=== PATIENT | female | born 1950 | race African-American/Black ===

== ENCOUNTER 2017-11-08 06:11 | Emergency (ER) | payer OTHER, BC ==
[~2017-11-08] VITALS: Ht 157.5 cm; Wt 116.6 kg
[~2017-11-08 06:11] MED LIST: MACROBID 100 M100 M1 PO; POTASSIUM CHLO10 MEQ PO; ZOFRAN ODT8 MG PO
[2017-11-08] MEDS ORDERED: LOPRESSOR50 MG PO (06:25)
[2017-11-08] MEDS ORDERED: CARDIZEM CD120 MG PO (06:26)
[2017-11-08] MEDS ORDERED: NEURONTIN 300300 M1 PO (06:26)
[2017-11-08] MEDS ORDERED: POTASSIUM20 PO (06:27)
[2017-11-08] MEDS ORDERED: HYDROCHLOROTHIA25 M2 PO (06:27)
[2017-11-08] MEDS ORDERED: NAPROSYN500 MG PO (06:28)
[2017-11-08] MEDS ORDERED: VITAMIN D3400 UNIT PO (06:29)
[2017-11-08 06:45] LABS: ABSOLUTE NEUTROPHILS 5.2 thou/uL (1.4-8.2); BASOPHILS 0.5 % (0.0-2.0); EOSINOPHILS 1.5 % (0.0-3.0); HEMATOCRIT 36.3 % (37.0-47.0); HEMOGLOBIN 12.1 gm/dL (12.0-15.0); MCH 27.7 pg (26.0-34.0); MCHC 33.2 g/dL (28.0-37.0); MCV 83.4 fL (80.0-100.0); MONOCYTES 9.2 % (1.0-8.0); PLATELET COUNT 346 thou/uL (150-400); POLYS 64.8 % (36.0-66.0); RBC 4.36 mil/uL (4.20-5.00); RDW 15.5 % (10.5-14.5)
[2017-11-08 06:50] LABS: CREATININE 0.8 mg/dL (0.6-1.0); POTASSIUM 3.1 mmol/L (3.5-5.1)
[2017-11-08 06:56] LABS: ALBUMIN 3.7 g/dL (3.4-5.0); DIRECT BILIRUBIN 0.1 mg/dL (<0.1-0.3); TOTAL BILIRUBIN 0.4 mg/dL (<0.1-1.0)
[2017-11-08 08:52] VITALS: BP 153/87
== END 2017-11-08 08:53 | disposition home or self-care (01) ==
LOC: ER 06:11
PROVIDERS: Emergency Medicine
DX: S86.912A Strain of unspecified muscle(s) and tendon(s) at lower leg level, left leg, initial encounter (principal); X58.XXXA Exposure to other specified factors, initial encounter; Y93.89 Activity, other specified; Y92.89 Other specified places as the place of occurrence of the external cause; Y99.8 Other external cause status; M19.90 Unspecified osteoarthritis, unspecified site

== ENCOUNTER 2019-06-21 12:05 | Emergency (ER) | payer OTHER, BC ==
[~2019-06-21] VITALS: Ht 157.5 cm; Wt 90.7 kg
[~2019-06-21 12:05] MED LIST changes: +CARDIZEM CD120 MG PO; +HYDROCHLOROTHIA25 M2 PO; +LOPRESSOR50 MG PO; +NAPROSYN500 MG PO; +NEURONTIN 300300 M1 PO; +POTASSIUM20 PO; +VITAMIN D3400 UNIT PO
[2019-06-21] MEDS ORDERED: MOBIC7.5 MG PO (12:30)
[2019-06-21] MEDS ORDERED: TOPAMAX100 MG PO ×2 (12:31)
[2019-06-21 13:04] LABS: ABSOLUTE NEUTROPHILS 3.7 thou/uL (1.4-8.2); BASOPHILS 0.8 % (0.0-2.0); HEMATOCRIT 38.4 % (37.0-47.0); HEMOGLOBIN 12.4 gm/dL (12.0-15.0); LYMPHOCYTES 13.2 % (24.0-44.0); MCH 27.3 pg (26.0-34.0); MCHC 32.4 g/dL (28.0-37.0); MCV 84.3 fL (80.0-100.0); MONOCYTES 9.7 % (1.0-8.0); PLATELET COUNT 256 thou/uL (150-400); POLYS 76.3 % (36.0-66.0); RBC 4.56 mil/uL (4.20-5.00); RDW 14.2 % (10.5-14.5); WBC 4.8 thou/uL (4.0-11.0)
[2019-06-21 13:12] LABS: ANION GAP 8 mmol/L (7-16); BUN 13 mg/dL (7-18); CALCIUM 10.1 mg/dL (8.5-10.1); CHLORIDE 101 mmol/L (98-107); CO2 31 mmol/L (21-32); CREATININE 0.8 mg/dL (0.6-1.0); GLUCOSE 115 mg/dL (74-106); POTASSIUM 3.7 mmol/L (3.5-5.1); SODIUM 140 mmol/L (136-145)
[2019-06-21 13:22] LABS: ALBUMIN 3.6 g/dL (3.4-5.0); SGOT 27 U/L (15-37); SGPT 36 U/L (30-65); TOTAL BILIRUBIN 0.6 mg/dL (<0.1-1.0); TOTAL PROTEIN 7.8 g/dL (6.4-8.2); TROPONIN-I <0.06 ng/mL (<0.06)
[2019-06-21 14:58] LABS: URINE BILIRUBIN NEGATIVE (Negative); URINE BLOOD 3+ (Negative); URINE CLARITY CLEAR; URINE COLOR OTHER; URINE GLUCOSE-RANDOM* NEGATIVE (Negative); URINE KETONES NEGATIVE (Negative); URINE NITRITE-REFLEX NEGATIVE (Negative); URINE PROTEIN (DIPSTICK) NEGATIVE (Negative); URINE SPECIFIC GRAVITY <= 1.005 (1.005-1.035); URINE UROBILINOGEN 0.2 E.U./dl (0.2-1.0)
[2019-06-21 15:02] LABS: URINE LEUKOCYTES-REFLEX 1+ (Negative)
[2019-06-21 15:12] LABS: BACTERIA-REFLEX 1-9 Few /HPF (None Seen); CASTS None Seen /LPF (None Seen); CRYSTALS None Seen /LPF (None Seen); SQUAMOUS 0-3 Few /LPF (0-3); URINE RBC 3-10 Few /HPF (0-2); URINE WBC-REFLEX 0-5 Rare /HPF (0-5)
[2019-06-21] MEDS ORDERED: KEFLEX500 M2 PO (15:22)
[2019-06-21] MEDS ORDERED: DIFLUCAN150 MG PO (15:54)
[2019-06-21 16:03] VITALS: BP 152/77
--- NOTE | 2019-06-24 12:58 | EKG ---
[address] [place] [address] ELECTROCARDIOGRAM REPORT Name: ROSAURA GLASSANATOLY Buckley [id number] Admission: 06/21/19 Attend Phys: Discharge: 06/21/19 Date of : 46 Report #: [id number] THIS REPORT FOR: //name// [facility] ED Test Date: 2019-06-21 Test Time: 12:17:08 Pat Name: OMER GLASS Department: Room: Gender: F [facility] Cook: : 1950 Requested By: Elsa Valdez Order Number: [id number] MD: Kip Oviedo Measurements Intervals [place] Rate: 69 P: 53 VA: 175 QRS: -34 QRSD: 116 T: 28 QT: 405 QTc: 434 Interpretive Statements Sinus rhythm Nonspecific intraventricular conduction delay No previous ECG available for comparison Electronically Signed On 06-24-2019 12:57:30 [employer]CESSION STAND ATTENDANT by Kip Oviedo [email or web address] <ELECTRONICALLY SIGNED> By: Kip Oviedo MD 06/24/19 1257 1217 1217 Kip Oviedo MD /GERMAIN
== END 2019-06-21 15:38 | disposition home or self-care (01) ==
LOC: ER 12:05
PROVIDERS: Emergency Medicine; Nurse Practitioner Family
DX: J18.8 Other pneumonia, unspecified organism (principal); R30.0 Dysuria; R31.9 Hematuria, unspecified; R53.1 Weakness; R19.7 Diarrhea, unspecified; I10 Essential (primary) hypertension; E78.00 Pure hypercholesterolemia, unspecified; K21.9 Gastro-esophageal reflux disease without esophagitis; Z90.710 Acquired absence of both cervix and uterus; Z79.899 Other long term (current) drug therapy

== ENCOUNTER 2020-10-29 15:23 | Emergency (ER) | payer OTHER, BC ==
[~2020-10-29] VITALS: Ht 157.5 cm; Wt 99.8 kg
[~2020-10-29 15:23] MED LIST changes: +DIFLUCAN150 MG PO; +KEFLEX500 M2 PO; +MOBIC7.5 MG PO; +TOPAMAX100 MG PO
[2020-10-29] MEDS ORDERED: GABAPENTIN 100100 MG PO (15:47)
[2020-10-29 16:05] LABS: ABSOLUTE NEUTROPHILS 7.9 thou/uL (1.4-8.2); BASOPHILS 0.8 % (0.0-2.0); EOSINOPHILS 0.1 % (0.0-3.0); MCH 29.5 pg (26.0-34.0); MCHC 34.1 g/dL (28.0-37.0); MCV 86.5 fL (80.0-100.0); MONOCYTES 6.6 % (1.0-8.0); PLATELET COUNT 335 thou/uL (150-400); POLYS 80.5 % (36.0-66.0); RDW 15.3 % (10.5-14.5); URINE BILIRUBIN NEGATIVE (Negative); URINE BLOOD 2+ (Negative); URINE CLARITY CLEAR; URINE COLOR YELLOW; URINE GLUCOSE-RANDOM* NEGATIVE (Negative); URINE KETONES NEGATIVE (Negative); URINE LEUKOCYTES-REFLEX NEGATIVE (Negative); URINE NITRITE-REFLEX NEGATIVE (Negative); URINE PROTEIN (DIPSTICK) NEGATIVE (Negative); URINE SPECIFIC GRAVITY 1.015 (1.005-1.035); URINE UROBILINOGEN 0.2 E.U./dl (0.2-1.0); WBC 9.8 thou/uL (4.0-11.0)
[2020-10-29 16:13] LABS: BACTERIA-REFLEX None Seen /HPF (None Seen); CASTS None Seen /LPF (None Seen); CRYSTALS None Seen /LPF (None Seen); SQUAMOUS None Seen /LPF (0-3); URINE WBC-REFLEX 0-5 Rare /HPF (0-5)
[2020-10-29 16:17] LABS: ANION GAP 11 mmol/L (7-16); BUN 16 mg/dL (7-18); CALCIUM 9.4 mg/dL (8.5-10.1); CHLORIDE 103 mmol/L (98-107); CO2 29 mmol/L (21-32); CREATININE 0.9 mg/dL (0.6-1.0); GLUCOSE 127 mg/dL (74-106); POTASSIUM 3.4 mmol/L (3.5-5.1); SODIUM 143 mmol/L (136-145)
[2020-10-29 16:26] LABS: ALBUMIN 3.4 g/dL (3.4-5.0); SGOT 18 U/L (15-37); SGPT 24 U/L (30-65); TOTAL BILIRUBIN 0.5 mg/dL (0.2-1.0); TOTAL PROTEIN 8.1 g/dL (6.4-8.2); TROPONIN-I <0.06 ng/mL (<0.06)
[2020-10-29 18:28] VITALS: BP 166/72
--- NOTE | 2020-10-30 07:07 | EKG ---
[place] [address] [facility] [place] [address] ELECTROCARDIOGRAM REPORT Name: OMER GLASS Room #: [facility]#: [id number] Admission: 10/29/20 Attend Phys: Discharge: 10/29/20 Date of : 46 Report #: [id number] [facility] ED Test Date: 2020-10-29 Test Time: 16:40:09 Pat Name: OMER GLASS Department: Room: Gender: F Cardiology Specialist: ren : 1950 Requested By: Lala Ambrose Order Number: [id number] MD: Reji Truong Measurements Intervals [place] Rate: 81 P: [place]: QRS: -29 QRSD: 114 T: 34 QT: 377 QTc: 438 Interpretive Statements NSR Borderline intraventricular conduction delay Compared to ECG 06/21/2019 12:17:08 No significant change Electronically Signed On 10-30-2020 7:07:10 CDT by Reji Truong [email or web address] <ELECTRONICALLY SIGNED> By: Reji Truong MD, [facility] 10/30/20 0707 1640 Allyn Truong MD, FACC /EPI
--- NOTE | 2020-10-30 12:34 | EKG ---
[facility] [address] [place] [employer] [address] [place] [address] ELECTROCARDIOGRAM REPORT Name: OMER GLASS Room #: [facility]#: [id number] Admission: 10/29/20 Attend Phys: Discharge: 10/29/20 Date of : 46 Report #: [id number] [facility] ED Test Date: 2020-10-29 Test Time: 16:37:00 Pat Name: OMER GLASS Department: Room: Gender: F Adult Basic Education Instructor: ren : 1950 Requested By: Lala Ambrose Order Number: [id number] MD: Reji Truong Measurements Intervals [place] Rate: 81 P: 26 MA: 210 QRS: -27 QRSD: 98 T: 25 QT: 371 QTc: 431 Interpretive Statements Sinus rhythm Ventricular premature complex Borderline left axis deviation Compared to ECG 06/21/2019 12:17:08 Ventricular premature complex(es) now present Intraventricular conduction delay no longer present Electronically Signed On 10-30-2020 12:34:12 CDT by Reji Truong [email or web address] <ELECTRONICALLY SIGNED> By: Reji Truong MD, [facility] 10/30/20 1234 36 36 Reji Truong MD, FACC /EPI
== END 2020-10-29 18:34 | disposition home or self-care (01) ==
LOC: ER 15:23
PROVIDERS: Physician Assistant
DX: R53.83 Other fatigue (principal); N20.1 Calculus of ureter; I10 Essential (primary) hypertension; E78.00 Pure hypercholesterolemia, unspecified; K21.9 Gastro-esophageal reflux disease without esophagitis; Z90.710 Acquired absence of both cervix and uterus

== ENCOUNTER 2021-07-02 12:25 | Emergency (ER) | payer OTHER, BC ==
[~2021-07-02] VITALS: Ht 157.5 cm; Wt 95.3 kg
[~2021-07-02 12:25] MED LIST changes: +GABAPENTIN 100100 MG PO
[2021-07-02 18:14] LABS: URINE BILIRUBIN NEGATIVE (Negative); URINE BLOOD 3+ (Negative); URINE CLARITY CLEAR; URINE COLOR YELLOW; URINE GLUCOSE-RANDOM* NEGATIVE (Negative); URINE KETONES 1+ (Negative); URINE LEUKOCYTES-REFLEX NEGATIVE (Negative); URINE NITRITE-REFLEX NEGATIVE (Negative); URINE PROTEIN (DIPSTICK) TRACE (Negative); URINE SPECIFIC GRAVITY 1.015 (1.005-1.035); URINE UROBILINOGEN 0.2 E.U./dl (0.2-1.0)
[2021-07-02 18:23] LABS: BACTERIA-REFLEX 1-9 Few /HPF (None Seen); CASTS None Seen /LPF (None Seen); CRYSTALS None Seen /LPF (None Seen); SQUAMOUS 0-3 Few /LPF (0-3); URINE RBC >20 Many /HPF (NONE SEEN); URINE WBC-REFLEX 0-5 Rare /HPF (0-5)
[2021-07-02 18:51] LABS: ABSOLUTE NEUTROPHILS 5.8 thou/uL (1.4-8.2); BASOPHILS 0.5 % (0.0-2.0); EOSINOPHILS 0.2 % (0.0-3.0); HEMOGLOBIN 11.9 gm/dL (12.0-15.0); LYMPHOCYTES 11.6 % (24.0-44.0); MCHC 32.2 g/dL (28.0-37.0); PLATELET COUNT 376 thou/uL (150-400); POLYS 78.7 % (36.0-66.0); RBC 4.25 mil/uL (4.20-5.00); RDW 14.5 % (10.5-14.5); WBC 7.4 thou/uL (4.0-11.0)
[2021-07-02 19:00] LABS: CALCIUM 9.6 mg/dL (8.5-10.1); CREATININE 0.8 mg/dL (0.6-1.0); POTASSIUM 3.1 mmol/L (3.5-5.1)
[2021-07-02 19:06] LABS: ALBUMIN 3.2 g/dL (3.4-5.0); TOTAL BILIRUBIN 0.4 mg/dL (0.2-1.0); TOTAL PROTEIN 7.5 g/dL (6.4-8.2)
[2021-07-02 20:03] VITALS: BP 155/88
== END 2021-07-02 20:11 | disposition home or self-care (01) ==
LOC: ER 12:25
PROVIDERS: Nurse Practitioner
DX: N20.0 Calculus of kidney (principal); K80.20 Calculus of gallbladder without cholecystitis without obstruction; E87.6 Hypokalemia; I10 Essential (primary) hypertension; E78.00 Pure hypercholesterolemia, unspecified; K21.9 Gastro-esophageal reflux disease without esophagitis; Z90.710 Acquired absence of both cervix and uterus; Z79.899 Other long term (current) drug therapy